=== PATIENT | female | born 1995 | race Caucasian/White ===

== ENCOUNTER 2019-10-14 09:37 | Outpatient (CLI) | payer OTHER ==
[2019-10-14 14:42] LABS: ALBUMIN 4.5 g/dL (3.2-5.5); ALBUMIN/GLOBULIN RATIO 1.4 (1.0-2.2); BILIRUBIN,TOTAL 0.7 mg/dL (0.2-1.0); CALCIUM 9.1 mg/dL (8.5-10.3); CREATININE 0.7 mg/dL (0.4-1.0); TOTAL PROTEIN 7.8 g/dL (6.7-8.2)
[2019-10-14 15:05] LABS: BASOPHILS # (AUTO) 0.1 10^3/uL (0.0-0.1); BASOPHILS % (AUTO) 1.5 %; EOSINOPHILS # (AUTO) 0.2 10^3/uL (0.0-0.7); EOSINOPHILS % (AUTO) 3.1 %; HGB - HEMOGLOBIN 13.7 g/dL (12.0-16.0); LYMPHOCYTES # (AUTO) 1.7 10^3/uL (1.5-3.5); LYMPHOCYTES % (AUTO) 29.8 %; MEAN CORPUSCULAR HEMOGLOBIN 30.9 pg (27.0-31.0); MEAN CORPUSCULAR HGB CONC 33.1 g/dL (32.0-36.0); MEAN CORPUSCULAR VOLUME 93.2 fL (81.0-99.0); MEAN PLATELET VOLUME 11.9 fL (7.9-10.8); MONOCYTES # (AUTO) 0.5 10^3/uL (0.0-1.0); MONOCYTES % (AUTO) 8.4 %; NEUTROPHILS # (AUTO) 3.3 10^3/uL (1.5-6.6); NEUTROPHILS % (AUTO) 56.9 %; PLT - PLATELET COUNT 227 10^3/uL (130-450); RED BLOOD COUNT 4.44 10^6/uL (4.20-5.40); RED CELL DISTRIBUTION WIDTH 12.3 % (12.0-15.0); WHITE BLOOD COUNT 5.8 x10^3/uL (4.8-10.8)
== END 2019-10-14 23:59 | disposition home or self-care (01) ==
LOC: LAB.WCP 09:37
PROVIDERS: ATTEND Physician Assistant
DX: Z00.00 Encounter for general adult medical examination without abnormal findings (principal)
CPT/HCPCS: 36415; 80053; 84443; 85025

== ENCOUNTER 2021-04-21 07:32 | Outpatient (CLI) | payer OTHER ==
--- NOTE | 2021-04-21 16:42 | Ultrasound Report ---
PROCEDURE: OB First Trimester INDICATIONS: POSITIVE TEST OUTSIDE/PRIOR DATING DATA: Last menstrual period (LMP): 01/29/2021. LMP-based estimated date of delivery (KIMBERLY): 11/05/2021. First dating scan (date and location): This study. Estimated date of delivery (KIMBERLY) from first dating scan: 11/05/2021, +/- 5 days. The below data below was generated using the above KIMBERLY of 11/05/2021. TECHNIQUE: Real-time scanning was performed of the fetus and maternal pelvic organs, with image documentation. COMPARISON: None FINDINGS: Single living intrauterine gestation with current heart rate 1 52 bpm and posterior placen ta. Soudan-rump length is measured at 5 cm, which correlates with a gestational age of 11 weeks 5 days , +/- 5 days. Embryo: Normal in appearance, anatomy cannot yet be accurately assessed. Heart rate: 152 bpm. Measurement variability in dating: +/- 4 weeks by LMP, +/- 7 days by mean sac diameter (use before 6 weeks gestation if crown-rump length not able to be measured), +/- 5 days by crown-rump length (6-12 weeks gestation). Maternal organs: Ovaries normal considering gestational status.. IMPRESSION: Single living intrauterine gestation, measuring 11 weeks 5 days of age and with delivery date project ed to be centered on 11/05/2021, +/- 5 days. Reviewed by: Bj Tamayo MD on 04/21/2021 4:40 PM PDT Approved by: Bj Tamayo MD on 04/21/2021 4:40 PM PDT Station ID: [id number]
== END 2021-04-21 07:33 | disposition home or self-care (01) ==
LOC: DI 07:32
PROVIDERS: ATTEND Nurse Practitioner Obstetrics & Gynecology
DX: Z32.01 Encounter for pregnancy test, result positive (principal)

== ENCOUNTER 2021-05-10 08:00 | Outpatient (CLI) | payer OTHER ==
[2021-05-11 13:22] LABS: BILIRUBIN,URINE NEGATIVE (NEGATIVE); GLUCOSE, URINE (UA) NEGATIVE (NEGATIVE); KETONES,URINE (UA) NEGATIVE (NEGATIVE); LEUKOCYTE ESTERASE, URINE NEGATIVE (NEGATIVE); NITRITE,URINE NEGATIVE (NEGATIVE); OCCULT BLOOD,URINE NEGATIVE (NEGATIVE); PROTEIN,URINE NEGATIVE (NEGATIVE); UROBILINOGEN,URINE 0.2 (NORMAL) E.U./dL (NORMAL)
[2021-05-11 13:23] LABS: CLARITY,URINE CLEAR (CLEAR)
[2021-05-11 13:30] LABS: MUDS CUTOFF CONCENTRATIONS CUTOFF CONC BELOW:
[2021-05-11 13:31] LABS: AMPHETAMINE SCREEN,URINE NEGATIVE (NEGATIVE); BACTERIA,URINE Few /HPF (None Seen); BARBITURATE SCREEN,UR NEGATIVE (NEGATIVE); BENZODIAZEPINES SCREEN, URINE NEGATIVE (NEGATIVE); COCAINE SCREEN URINE NEGATIVE (NEGATIVE); METHADONE SCREEN, URINE NEGATIVE (NEGATIVE); METHAMPHETAMINES SCREEN, URINE NEGATIVE (NEGATIVE); OPIATE SCREEN, URINE NEGATIVE (NEGATIVE); OXYCODONE SCREEN, URINE NEGATIVE (NEGATIVE); PROPOXYPHENE SCREEN, URINE NEGATIVE (NEGATIVE); RBC,URINE 0-5 /HPF (0-5); SQUAMOUS EPITHELIAL CELL,UR FEW Squamous (<= Few); THC CANNABINOID SCREEN, URINE NEGATIVE (NEGATIVE); TRICYCLIC ANTIDEPRESSANT,URINE NEGATIVE (NEGATIVE); WBC,URINE 0-3 /HPF (0-5)
[2021-05-11 21:50] LABS: CHLAMYDIA TRACHOMATIS DNA NEGATIVE (NEGATIVE); NEISSERIA GONORRHOEAE DNA NEGATIVE (NEGATIVE); TRICHOMONAS VAGINALIS DNA NEGATIVE (NEGATIVE)
== END 2021-05-10 23:59 | disposition home or self-care (01) ==
LOC: LAB.WC 08:00
PROVIDERS: ATTEND Nurse Practitioner Obstetrics & Gynecology
DX: Z34.90 Encounter for supervision of normal pregnancy, unspecified, unspecified trimester (principal); Z36.89 Encounter for other specified antenatal screening
CPT/HCPCS: 80306; 81001; 87086; 87491; 87591; 87661

== ENCOUNTER 2021-05-10 14:04 | Outpatient (CLI) | payer OTHER ==
[2021-05-10 14:22] LABS: BASOPHILS # (AUTO) 0.1 10^3/uL (0.0-0.1); BASOPHILS % (AUTO) 0.5 %; EOSINOPHILS # (AUTO) 0.1 10^3/uL (0.0-0.7); EOSINOPHILS % (AUTO) 0.9 %; HCT - HEMATOCRIT 36.4 % (37.0-47.0); HGB - HEMOGLOBIN 12.7 g/dL (12.0-16.0); LYMPHOCYTES # (AUTO) 1.9 10^3/uL (1.5-3.5); LYMPHOCYTES % (AUTO) 14.8 %; MEAN CORPUSCULAR HEMOGLOBIN 31.1 pg (27.0-31.0); MEAN CORPUSCULAR HGB CONC 34.9 g/dL (32.0-36.0); MEAN CORPUSCULAR VOLUME 89.2 fL (81.0-99.0); MEAN PLATELET VOLUME 9.9 fL (7.9-10.8); MONOCYTES # (AUTO) 0.7 10^3/uL (0.0-1.0); MONOCYTES % (AUTO) 5.6 %; NEUTROPHILS % (AUTO) 77.8 %; PLT - PLATELET COUNT 249 10^3/uL (130-450); RED BLOOD COUNT 4.08 10^6/uL (4.20-5.40); RED CELL DISTRIBUTION WIDTH 12.5 % (12.0-15.0); WHITE BLOOD COUNT 12.8 x10^3/uL (4.8-10.8)
[2021-05-12 13:12] LABS: HIV AG/AB 4TH GEN NON-REACTIVE (NON-REACTIVE)
[2021-05-12 13:26] LABS: HEPATITIS B SURFACE ANTIGEN NON-REACTIVE (NON-REACTIVE)
[2021-05-12 13:27] LABS: HEPATITIS C ANTIBODY NON-REACTIVE (NON-REACTIVE)
== END 2021-05-10 14:05 | disposition home or self-care (01) ==
LOC: LAB 14:04
PROVIDERS: ATTEND Nurse Practitioner Obstetrics & Gynecology
DX: Z36.89 Encounter for other specified antenatal screening (principal); Z32.01 Encounter for pregnancy test, result positive
CPT/HCPCS: 36415; 85025; 86592; 86762; 86787; 86803; 86850; 86900; 86901; 87340; 87389

== ENCOUNTER 2021-06-06 06:58 | Outpatient (CLI) | payer OTHER ==
--- NOTE | 2021-06-06 17:07 | Ultrasound Report ---
PROCEDURE: OB Detailed Eval INDICATIONS: SUPERVISION OF NORMAL OUTSIDE/PRIOR DATING DATA: Last menstrual period (LMP): 01/29/2021. LMP-based estimated date of delivery (KIMBERLY): 11/05/2021. First dating scan (date and location): 04/21/2021. Estimated date of delivery (KIMBERLY) from first dating scan: 11/05/2021. The below data below was generated using the KIMBERLY of 11/05/2021 TECHNIQUE: Real-time scanning was performed of the fetus, with image documentation and biometric measurements. COMPARISON: OB ultrasound 04/21/2021 FINDINGS: General: A single living intrauterine gestation is present. Presentation: Vertex Placenta: Placental position is posterior, without previa. Amniotic fluid index: 12.3 cm. Largest pocket 3.9 cm heart rate: 137 beats per minute. Maternal cervical canal: 3.4 cm long; normal length is 2.5 cm or more. biometrics: Biparietal diameter: 4.3 cm 18 weeks 6 days Head circumference: 15.7 cm 18 weeks 4 days Abdominal circumference: 13.1 cm 18 weeks 4 days Femur length: 2.7 cm 18 weeks 2 days Estimated gestational age from initial scan: 18 weeks 2 days Composite gestational age from present scan: 18 weeks 4 days Estimated weight and percentile: 242 g 58th percentile Measurement variability in biometric dating: +/- 10 days from 12-20 weeks gestation, +/- 2 weeks from 20-30 weeks gestation, +/- 3 weeks at 30 weeks gestation or later. Anatomic survey: Neuro: Ventricles are normal at less than 10 mm. Cisterna magna is normal at 3-11 mm. Cerebellum i s normal in size and morphology. Nuchal skin fold: Normal at less than 6 mm between 14 and 20 weeks gestational age. Face: Nose and lips, facial profile are normal. Spine: No evidence for spina bifida. Heart: 4-chambered heart is present, with normal ventricular outflow tracts. Diaphragm: Diaphragm is intact. Stomach: Left-sided stomach is present. Kidneys: No hydronephrosis. Normal is less than 5 mm in 2nd trimester, less than 7 mm in 3rd trimester. Cord: 3 vessel cord has orthotopic insertion. Bladder: Normal in size. Extremities: All 4 extremities are visualized. IMPRESSION: 1. Single live intrauterine . 2. JANIE 12.3 cm, largest pocket 3.9 cm Reviewed by: Radha Centeno MD on 06/06/2021 5:06 PM PDT Approved by: Radha Centeno MD on 06/06/2021 5:06 PM PDT Station ID: [id number]
== END 2021-06-06 06:59 | disposition home or self-care (01) ==
LOC: DI 06:58
PROVIDERS: ATTEND Nurse Practitioner Obstetrics & Gynecology
DX: Z34.02 Encounter for supervision of normal first pregnancy, second trimester (principal); Z36.89 Encounter for other specified antenatal screening

== ENCOUNTER 2021-08-19 09:47 | Outpatient (CLI) | payer OTHER | END 2021-08-19 09:48 | disposition home or self-care (01) | LOC: LAB 09:47 | PROVIDERS: ATTEND Nurse Practitioner Obstetrics & Gynecology | DX: Z36.89 Encounter for other specified antenatal screening (principal) | CPT/HCPCS: 82950; 85027 ==

== ENCOUNTER 2021-10-11 11:40 | Outpatient (CLI) | payer OTHER | END 2021-10-11 23:59 | disposition home or self-care (01) | LOC: LAB.WC 11:40 | PROVIDERS: ATTEND Nurse Practitioner Obstetrics & Gynecology | DX: Z36.85 Encounter for antenatal screening for Streptococcus B (principal) | CPT/HCPCS: 87797 ==

== ENCOUNTER 2021-11-04 22:38 | Outpatient (CLI) | payer OTHER ==
[2021-11-04 23:03] VITALS: BP 129/77
--- NOTE | 2021-11-04 23:36 | PROVIDER PROGRESS NOTE ---
- HPI Chief Complaint: Leakage of vaginal fluid Current : Vital Signs Temperature 99.0 F 11/04/21 22:40 Temperature 99.0 F 11/04/21 22:48 Heart Rate 74 11/04/21 22:48 Respiratory Rate 17 11/04/21 22:48 Blood Pressure 129/77 11/04/21 22:48 O2 Saturation 100 11/04/21 22:48 - Procedures OB Procedure Performed: NST Diagnosis/Indication for NST: Other (ROM) NST Procedure: EFM 125 mod jenna 15x15 accels no decels TOCO: intermittent/mild start time: 22;47 Stop time: 23:08 Cat I tracing Service Date of procedure: 11/04/21 - Plan Plan: ID: Patient is a 26 yo at 39+6 wga who presented for assessment of ruptured membranes. HPI: Patient called the answering service at 20:37 indicated that she had passed a large gush of fluid and had ongoing fluid loss. It was recommended that she present to Labor and Dleivery for admission. She reported that she wanted to labor at home as much as possible and did not want to present to the hospital. Risks of prolapse cord, etc were reviewed and patient agreed to come in for assessment. Upon presentation, she was noted to have gross loss of fluid, with pads and undergarments fully saturated. Fluid and fluid from undergarments were strongly nitrazine positive. Patient reports passing only a spot of blood. Intermittent contractions. Endorses FM. Patient has received her care through the midwifery service at [facility]. PNC: LMP: 01/29/2021 KIMBERLY by LMP: 11/05/2021 Initial U/S: @ 11.5wks c/w LMP for KIMBERLY 11/05/2021 FINAL KIMBERLY: 11/05/2021 A pos/Rubella immune VZV:immune Genetic testing: declined FAS: wnl. Placenta posterior. JANIE 12.3, SDP 3.9. EFW 58%. 3VC Glucola: declined. Will track BS 4x/day for 4 weeks beginiing 08/23/21 Influenza:decline TDAP decline COVID-19 vaccine - declines GBS @36.3 Negative HSV: negative Breast pump Rx-08/09 MOD: Anticipate ; Partner Mirsha (male); epidural; breast; It's a baby GIRL!!!- Shereen pp contraception: pap: 10/14/2019 wnl PMH: none PSH: none SOC HX: Lives in [place]. No DANIEL FH: Denies any significant family hx. ROS: As per HPI, otherwise remaining systems are negative. 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 It was strongly recommended that patient be admitted for management of SROM/labor and continued surveillance of FWB Patient declined and states she wants to labor at home and come in when she can no longer tolerate the discomfort. We had an extensive discussion regarding maternal and risks s/p rupture of membranes, including but not limited to chorioamnionitis, sepsis, undetected cord prolapse, etc. Briefly reviewed termPROM trial findings and implications. Showed patient and family labor room. Despite extensive discussion, patient refused admission. Signed AMA papers. Reports she will return when labor is active. Cat I tracing.
== END 2021-11-04 23:23 | disposition left against medical advice (07) ==
LOC: WFO 22:38 → FBP 22:40 → WFO 23:23
PROVIDERS: ATTEND Obstetrics & Gynecology
DX: O42.92 Full-term premature rupture of membranes, unspecified as to length of time between rupture and onset of labor (principal); Z3A.39 39 weeks gestation of pregnancy; Z53.29 Procedure and treatment not carried out because of patient's decision for other reasons
CPT/HCPCS: 59025; 99214

== ENCOUNTER 2021-11-05 02:04 | Inpatient (IN) | payer OTHER ==
[2021-11-05] MEDS ORDERED: OXYTOCIN 10 UNIT/ML VIAL IM PRN (02:51)
[2021-11-05] MEDS ORDERED: SODIUM CHLORIDE FLUSH 0.9% 10 ML SYRINGE IVP PRN (02:51)
[2021-11-05] MEDS ORDERED: OXYTOCIN/SODIUM CHLORIDE 500 ML IV PRN (02:51)
[2021-11-05] MEDS ORDERED: LABETALOL 20 MG/4 ML SYRINGE IVP PRN ×2 (02:51)
[2021-11-05] MEDS ORDERED: fentaNYL 100 MCG/2 ML VIAL IVP PRN (02:51)
[2021-11-05] MEDS ORDERED: miSOPROStoL 200 MCG TABLET BC PRN (02:51)
[2021-11-05] MEDS ORDERED: CARBOPROST TROMETHAMINE 250 MCG/ML AMP IM PRN (02:51)
[2021-11-05] MEDS ORDERED: miSOPROStoL 200 MCG TABLET PR PRN (02:51)
[2021-11-05] MEDS ORDERED: METHYLERGONOVINE 0.2 MG/ML VIAL IM PRN (02:51)
[2021-11-05] MEDS ORDERED: TERBUTALINE 1 MG/ML VIAL SUBQ PRN (02:51)
[2021-11-05] MEDS ORDERED: hydrALAZINE INJ 20 MG/ML VIAL IVP PRN (02:51)
[2021-11-05] MEDS ORDERED: LIDOCAINE-MPF 1% 30 ML VIAL ID PRN (02:51)
[2021-11-05] MEDS ORDERED: TRANEXAMIC ACID IN NACL 1,000 MG/100 ML BAG IV PRN (02:51)
[2021-11-05] MEDS ORDERED: LACTATED RINGERS 1,000 ML ONE ×2 (05:23→11:07)
[2021-11-05 06:09] LABS: BASOPHILS # (AUTO) 0.1 10^3/uL (0.0-0.1); BASOPHILS % (AUTO) 0.4 %; EOSINOPHILS % (AUTO) 0.1 %; HCT - HEMATOCRIT 34.4 % (37.0-47.0); HGB - HEMOGLOBIN 11.4 g/dL (12.0-16.0); LYMPHOCYTES # (AUTO) 1.6 10^3/uL (1.5-3.5); LYMPHOCYTES % (AUTO) 8.7 %; MEAN CORPUSCULAR HEMOGLOBIN 27.7 pg (27.0-31.0); MEAN CORPUSCULAR HGB CONC 33.1 g/dL (32.0-36.0); MEAN CORPUSCULAR VOLUME 83.5 fL (81.0-99.0); MEAN PLATELET VOLUME 10.4 fL (7.9-10.8); MONOCYTES % (AUTO) 5.4 %; NEUTROPHILS # (AUTO) 15.1 10^3/uL (1.5-6.6); NEUTROPHILS % (AUTO) 84.7 %; PLT - PLATELET COUNT 183 10^3/uL (130-450); RED BLOOD COUNT 4.12 10^6/uL (4.20-5.40); RED CELL DISTRIBUTION WIDTH 13.6 % (12.0-15.0); WHITE BLOOD COUNT 17.8 x10^3/uL (4.8-10.8)
[2021-11-05 06:19] LABS: ALBUMIN 3.1 g/dL (3.2-5.5); ALBUMIN/GLOBULIN RATIO 0.9 (1.0-2.2); BILIRUBIN,TOTAL 0.4 mg/dL (0.2-1.0); CALCIUM 8.6 mg/dL (8.5-10.3); CREATININE 0.5 mg/dL (0.4-1.0); POTASSIUM 3.5 mmol/L (3.5-5.0); TOTAL PROTEIN 6.5 g/dL (6.7-8.2)
[2021-11-05] MEDS ORDERED: LACTATED RINGERS 500 ML IV ONE ×2 (07:52→10:45)
[2021-11-05] MEDS ORDERED: ROPIVACAINE 0.2% 200 MG/100 ML BAG EP ONE (08:42)
[2021-11-05] MEDS ORDERED: ONDANSETRON 4 MG/2 ML VIAL IVP PRN (09:09)
[2021-11-05] MEDS ORDERED: NALBUPHINE 10 MG/ML AMP IVP PRN (09:09)
[2021-11-05] MEDS ORDERED: diphenhydrAMINE INJ 50 MG/ML VIAL IVP PRN (09:09)
[2021-11-05] MEDS ORDERED: ROPIVACAINE 0.2% 200 MG/100 ML BAG EP PRN (09:09)
--- NOTE | 2021-11-05 09:09 | ANESTHESIA ---
Pre-Anesthesia VS, & Labs - Diagnosis labor epidural - Procedure epidural Vital Signs: Temp Pulse Resp BP Pulse Ox 36.8 C 74 17 112/57 L 11/05/21 02:51 11/05/21 02:51 11/05/21 02:51 11/05/21 02:51 Height: 5 ft Weight (kg): 68.039 kg Body Mass Index: 29.2 BMI Classification: Overweight - NPO >8 hours - Is Patient ?: Yes - Lab Results Current Lab Results: Laboratory Tests 11/05/21 05:45: Sodium 134 L, Potassium 3.5, Chloride 101, Carbon Dioxide 21, Anion Gap 12.0, BUN 6, Creatinine 0.5, Estimated GFR (MDRD) 148, Glucose 90, Calcium 8.6, Total Bilirubin 0.4, AST 19, ALT 13, Alkaline Phosphatase 107, Total Protein 6.5 L, Albumin 3.1 L, Globulin 3.4, Albumin/Globulin Ratio 0.9 L 11/05/21 05:45: WBC 17.8 H, RBC 4.12 L, Hgb 11.4 L, Hct 34.4 L, MCV 83.5, MCH 27.7, MCHC 33.1, RDW 13.6, Plt Count 183, MPV 10.4, Neut # (Auto) 15.1 H, Lymph # (Auto) 1.6, [place] # (Auto) 1.0, Eos # (Auto) 0.0, Baso # (Auto) 0.1, Absolute Nucleated RBC 0.00, Nucleated RBC % 0.0 11/05/21 05:45: Blood Type A POSITIVE, Antibody Screen NEGATIVE Fish Bones: 11/05/21 05:45 11/05/21 05:45 Home Medications and Allergies Active Medications Carboprost Tromethamine (Carboprost Tromethamine 250 Mcg/Ml Amp) 250 mcg IM .ONCE PRN PRN Reason: Hemorrhage Fentanyl (Fentanyl 100 Mcg/2 Ml Vial) 50 mcg IVP Q1H PRN PRN Reason: Severe Pain (score 7-10) Hydralazine HCl (Hydralazine Inj 20 Mg/Ml Vial) 10 mg IVP .ONCE PRN; Protocol PRN Reason: Step 9 of Labetalol protocol Stop: 11/10/21 02:51 Oxytocin/Sodium Chloride (Pitocin/Sodium Chloride) 500 mls @ 999 mls/hr IV PRN PRN; Protocol PRN Reason: POST- HEMORR PREVENTION Tranexamic Acid (Tranexamic 1,000 Mg/100ml-Nacl) 1,000 mg in 100 mls @ 600 mls/hr IV Q30M PRN PRN Reason: EBL >1200mL and within 3hr Labetalol HCl (Labetalol 20 Mg/4 Ml Syringe) 20 - 80 mg IVP Q10M PRN; Protocol PRN Reason: SBP> or= 160 OR DBP> or= 110 Labetalol HCl (Labetalol 20 Mg/4 Ml Syringe) 20 mg IVP .ONCE PRN; Protocol PRN Reason: SBP> or= 160 OR DBP> or= 110 Lidocaine HCl (Lidocaine-Mpf 1% 30 Ml Vial) 30 ml ID ONCE PRN PRN Reason: PERINEAL REPAIR Stop: 11/06/21 02:51 Methylergonovine Maleate (Methylergonovine 0.2 Mg/Ml Vial) 0.2 mg IM .ONCE PRN PRN Reason: Hemorrhage Misoprostol (Misoprostol 200 Mcg Tablet) 600 mcg BC .ONCE PRN PRN Reason: Hemorrhage Misoprostol (Misoprostol 200 Mcg Tablet) 800 mcg [place] .ONCE PRN PRN Reason: Hemorrhage Oxytocin (Oxytocin 10 Unit/Ml Vial) 10 unit IM .ONCE PRN PRN Reason: Step One if no IV access. Sodium Chloride (Sodium Chloride Flush 0.9% 10 Ml Syringe) 10 ml IVP PRN PRN PRN Reason: NEEDED PER PROVIDER ORDERS Sodium Chloride (Sodium Chloride Flush 0.9% 10 Ml Syringe) 10 ml IVP Q8H YESICA Terbutaline Sulfate (Terbutaline 1 Mg/Ml Vial) 0.25 mg SUBQ ONCE PRN PRN Reason: Tachystole Stop: 11/05/21 23:59 Allergies/Adverse Reactions: Allergies Allergy/AdvReac Type Severity Reaction Status Date / Time No Known Drug Allergies Allergy Verified 11/05/21 03:28 Anes History & Medical History - Anesthetic History Anesthesia Complications: reports: No previous complications - Medical History Smoking Status: Never smoker History of Cancer?: No Exam General: Alert, Oriented x3 Dental: WNL Mallampati classification: II Thyromental Distance: greater than 6 cm Respiratory: Lungs clear Plan Anesthesia Type: Epidural Consent for Procedure(s) Verified and Reviewed: Yes Code Status: Attempt Resuscitation ASA classification: 2-Mild systemic disease Is this case an emergency?: No
[2021-11-05] MEDS: miSOPROStoL 100 MCG TABLET BC SCH (11:45)
--- NOTE | 2021-11-05 11:51 | CONSULTATION NOTE ---
Consultation Report: Called for decrease in BP after epidural bolus that resulted in new anxiety for patient. Pt able to move both legs but sensation decreased t/o. Pt has not used PCEA. Pump rate decreased to 8cc q50 mins and next bolus moved out 20 mins from original time to bolus. Pt states she is comfortable t/o contractions. VSS upon arrival.
--- NOTE | 2021-11-05 12:30 | HISTORY & PHYSICAL EXAMINATION ---
Admit History - Visit Reason Visit Reason: Membranes rupture - Smoking Status: Never smoker - Other Maternal History Other Maternal History: ID: Patient is a 26 yo at 40+0 wga who presented for admission for ruptured membranes. HPI: Patient presented on the evening of 11/04/20 after reporting that she had passed a large gush of fluid and had ongoing fluid loss at 20:37. She presented about 2 hours later for evaluation. Upon presentation, she was noted to have gross loss of fluid, with pads and undergarments fully saturated. Fluid and fluid from undergarments were strongly nitrazine positive. Patient reports passing only a spot of blood. Intermittent contractions. Endorsed FM. It was strongly recommended that she remain in house for admission and risks were reviewed. She declined admission and signed out AMA. She presented this am at about 2:51, reporting contractions were more intense. No VB. Endorses FM. Initial SVE was performed by RN and cervix was too high and posterior for evaluation. Patient has received her care through the midwifery service at [facility]. Desires low intervention. Epidural requested and placed this am PNC: LMP: 01/29/2021 KIMBERLY by LMP: 11/05/2021 Initial U/S: @ 11.5wks c/w LMP for KIMBERLY 11/05/2021 FINAL KIMBERLY: 11/05/2021 A pos/Rubella immune VZV:immune Genetic testing: declined FAS: wnl. Placenta posterior. JANIE 12.3, SDP 3.9. EFW 58%. 3VC Glucola: declined. Will track BS 4x/day for 4 weeks beginiing 08/23/21 Influenza:decline TDAP decline COVID-19 vaccine - declines GBS @36.3 Negative HSV: negative Breast pump Rx-08/09 MOD: Anticipate ; Partner Mirsha (male); epidural; breast; It's a baby GIRL!!!- Shereen pp contraception: pap: 10/14/2019 wnl PMH: none PSH: none SOC HX: Lives in [place]. No DANIEL FH: Denies any significant family hx. ROS: As per HPI, otherwise remaining systems are negative. 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 SROM: -Had been mitzy but has since diminished -Desires low intervention. Will administer misoprostol 25 mcg -Potential pitocin augmentation -WIll likely meet criteria for prolonged rupture of membranes; minimize SVE as much as possible FWB: Cat I tracing. PAIN: Has received epidural Anticipate Meds/Allgy - Allergies Allergies/Adverse Reactions: Allergies Allergy/AdvReac Type Severity Reaction Status Date / Time No Known Drug Allergies Allergy Verified 11/05/21 03:28 Physical - Abdominal Exam Vital Signs: Temp Pulse Resp BP Pulse Ox 98.2 F 74 17 112/57 L 11/05/21 02:51 11/05/21 02:51 11/05/21 02:51 11/05/21 02:51
[2021-11-05] MEDS: OXYTOCIN/SODIUM CHLORIDE 500 ML IV SCH (16:49)
--- NOTE | 2021-11-05 21:19 | PROVIDER PROGRESS NOTE ---
Subjective - Prog Note Date Prog Note Date: 11/05/21 Prog Note Time: 21:16 - Subjective Subjective: Patient is comfortable with epidural in place. Fluid remains clear. Afebrile. Resting in bed. Pitocin at 6 mU/min Objective - Vital Signs/Intake & Output Reviewed Vital Signs: Yes Vital Signs: 135/74 95 98% Intake & Output: Intake & Output 11/02/21 11/03/21 11/04/21 11/05/21 23:59 23:59 23:59 23:59 Intake Total 1199.5 Output Total 1050 Balance 149.5 - Objective General Appearance: positive: No acute distress Respiratory: positive: No respiratory distress Cardiovascular: positive: Other (RR) Comments/Other: SVE: retractable anterior lip/C/+2 EFM 135 mod jenna 15x15 accels no decels TOCO: Q3 min - Lab Results Fish Bones: 11/05/21 05:45 11/05/21 05:45 Other Labs: Lab Results x24hrs 11/05/21 11/05/21 11/05/21 Range/Units 05:45 05:45 05:45 WBC 17.8 H (4.8-10.8) x10^3/uL RBC 4.12 L (4.20-5.40) 10^6/uL Hgb 11.4 L (12.0-16.0) g/dL Hct 34.4 L (37.0-47.0) % MCV 83.5 (81.0-99.0) fL MCH 27.7 (27.0-31.0) pg MCHC 33.1 (32.0-36.0) g/dL RDW 13.6 (12.0-15.0) % Plt Count 183 (130-450) 10^3/uL MPV 10.4 (7.9-10.8) fL Neut # (Auto) 15.1 H (1.5-6.6) 10^3/uL Lymph # (Auto) 1.6 (1.5-3.5) 10^3/uL [place] # (Auto) 1.0 (0.0-1.0) 10^3/uL Eos # (Auto) 0.0 (0.0-0.7) 10^3/uL Baso # (Auto) 0.1 (0.0-0.1) 10^3/uL Absolute Nucleated RBC 0.00 x10^3/uL Nucleated RBC % 0.0 /100WBC Sodium 134 L (135-145) mmol/L Potassium 3.5 (3.5-5.0) mmol/L Chloride 101 (101-111) mmol/L Carbon Dioxide 21 (21-32) mmol/L Anion Gap 12.0 (6-13) BUN 6 (6-20) mg/dL Creatinine 0.5 (0.4-1.0) mg/dL Estimated GFR (MDRD) 148 (>89) Glucose 90 (70-100) mg/dL Calcium 8.6 (8.5-10.3) mg/dL Total Bilirubin 0.4 (0.2-1.0) mg/dL AST 19 (10-42) IU/L ALT 13 (10-60) IU/L Alkaline Phosphatase 107 (42-121) IU/L Total Protein 6.5 L (6.7-8.2) g/dL Albumin 3.1 L (3.2-5.5) g/dL Globulin 3.4 (2.1-4.2) g/dL Albumin/Globulin Ratio 0.9 L (1.0-2.2) Blood Type A POSITIVE Antibody Screen NEGATIVE Assessment/Plan - Problem List (1) Spontaneous rupture of amniotic membranes Impression: Anterior lip was retracted as patient pushed. Fully retracted to complete cervical dilation Cat I tracing Will start pushing once FOB returns to bedside
[2021-11-05] MEDS ORDERED: ONDANSETRON ODT 4 MG TABLET TL PRN (22:35)
[2021-11-05] MEDS ORDERED: IBUPROFEN 600 MG TABLET PO PRN (22:35)
[2021-11-05] MEDS ORDERED: SIMETHICONE CHEW 80 MG TABLET PO PRN (22:35)
[2021-11-05] MEDS ORDERED: DOCUSATE SODIUM 100 MG CAPSULE PO PRN (22:35)
[2021-11-05] MEDS ORDERED: HYDROCORTISONE 1% CREAM 28 GM TUBE PR PRN (22:35)
[2021-11-05] MEDS ORDERED: ACETAMINOPHEN 500 MG TABLET PO PRN (22:35)
--- NOTE | 2021-11-05 22:38 | DELIVERY NOTE ---
Delivery Note - Labor Labor: positive: Augmented by oxytocin - Delivery Method Delivery Method: positive: Spontaneous vaginal delivery - Presentation Presentation: positive: Vertex, HARMEET - right occiput anterior - Nuchal Cord Nuchal Cord: positive: None - Anesthetic Anesthetic Type: - Amniotic Fluid Description Amniotic Fluid Description: positive: Clear - Episiotomy Type Episiotomy Type: positive: None - Laceration Laceration: positive: 2nd degree - Suture Suture Type: positive: Vicryl Suture Size: positive: 2-0, 3-0 - Delivery Outcome Delivery Outcome: positive: Livebirth - Jackson Jackson: positive: Placed in direct skin contact with mother, Stimulated, Warmed, [place] used sex: positive: Female : Apgars 8/9 - Cord Cord: positive: 3 vessels - Placenta Placenta: positive: Intact, Expressed - Estimated Blood Loss Estimated Blood Loss (in cc): 372 (QBL) - Post Delivery Events Post Delivery Events: positive: No post delivery events - Delivery Comments (Free Text/Narrative) Delivery Comments (Free Text/Narrative): STAGE I: Patient presented on the evening of 11/04/21 after reporting that she had passed a large gush of fluid and had ongoing fluid loss at 20:37. She presented about 2 hours later for evaluation. Upon presentation, she was noted to have gross loss of fluid, with pads and undergarments fully saturated. Fluid and fluid from undergarments were strongly nitrazine positive. Patient reports passing only a spot of blood. Intermittent contractions. Endorsed FM. It was strongly recommended that she remain in house for admission and risks were reviewed. She declined admission and signed out AMA. She presented 11/05/21 am at about 2:51, reporting contractions were more intense. Initial SVE was performed by RN and cervix was too high and posterior for evaluation. She was given misoprostol 25 mcg x2 and then was started on pitocin for augmentation, reaching a max dose of 6 mU/min. Epidural for pain management. GBS negative. Cat I tracing throughout Stage I labor. Complete at 21:00. STAGE II: Patient started pushing at 21:10. She pushed well for 51 minutes to deliver a viable female from HARMEET presentation. Left shoulder was anterior and delivered without difficulty. No nuchal cord. was delivered to maternal chest. Cord was clamped x2 and cut after pulsations had ceased. Apgars were 8/9, weight pending. STAGE III: Placenta delivered at 22:07 with manual expression. It was examined and found to be intact. Perineum was examined and a 2nd degree midline laceration was noted. It was repaired in the usual sterile fashion in layers using 2-0 and 3-0 Vicryl. Good hemostasis was noted. QBL 372 mL
--- NOTE | 2021-11-06 10:40 | PROVIDER PROGRESS NOTE ---
Subjective - Prog Note Date Prog Note Date: 11/06/21 Prog Note Time: 10:38 - Subjective Subjective: Patient is resting in bed. Feels pain is well managed. BF going well but having nipple soreness. Minimal lochia. Voiding. Tolerating po. Would like to DC t onight but had prolonged ROM with delivery after 10 pm. Objective - Vital Signs/Intake & Output Reviewed Vital Signs: Yes Vital Signs: Vital Signs x48h Temp Pulse Resp BP 11/06/21 07:58 97.5 F L 76 18 111/61 Intake & Output: Intake & Output 11/03/21 11/04/21 11/05/21 11/06/21 23:59 23:59 23:59 23:59 Intake Total 2199.5 Output Total 1350 Balance 849.5 - Objective General Appearance: positive: No acute distress Respiratory: positive: No respiratory distress, Breath sounds nml Cardiovascular: positive: Regular rate & rhythm Abdomen: positive: Non-tender, Other (soft, FF below umbi) Extremities: positive: Non-tender Neurologic/Psychiatric: positive: Oriented x3 - Lab Results Fish Bones: 11/05/21 05:45 11/05/21 05:45 Assessment/Plan - Problem List (1) Spontaneous rupture of amniotic membranes Impression: PPD#1 s/p with prolonged ROM -Mother is doing wel. Progressing towards goals for discharge -Reviewed that with late night delivery, first time parenting, and prolonged ROMm would be best to discharge tomorrow Will defer to Pediatrics. -Reviewed discharge instructions -Will anticipate DC tomorrow Rh positive/Rubella imm
--- NOTE | 2021-11-06 10:43 | Discharge Plan ---
Discharge Plan Problem Reviewed?: Yes Disposition: Home, Self Care Condition: Good Diet: Regular Activity Restrictions: Additional Comments (see below) Shower Restrictions: Yes (ok to shower. No tub baths for 4 weeks) Additional Instructions or Follow Up instructions: Nothing in the vagina for 6 weeks: No intercourse, tampons, douching Call for: -Fever greater than 100.5 -Pain that does not improve with pain medication -Heavy bleeding in which you are soaking a pad an hour for 2 hours in a row -Pain in the legs (especially one sided), swelling in one leg and not the other, or difficulty/pain with breathing. No tub baths or hot tubs for 4 weeks DISCHARGE MEDICATIONS: Ibuprofen 600 mg by mouth every 6 hours as needed for pain Acetaminophen 500-1000 mg by mouth every 8 hours as needed for pain Docusate 100-200 mg by mouth twice a day as needed for constipation No Smoking: If you smoke, Please STOP! Call for help. Follow-up with: Ludmila Koch CNM, [place] [Provider Admit Priv/Credential] -
[2021-11-06] MEDS: OXYTOCIN/SODIUM CHLORIDE 500 ML IV SCH (14:21)
[2021-11-06] MEDS: LACTATED RINGERS 1,000 ML IV SCH ×2 (14:21→14:22)
[2021-11-06] MEDS: SODIUM CHLORIDE FLUSH 0.9% 10 ML SYRINGE IVP SCH ×3 (14:21→14:23)
[2021-11-06] MEDS: miSOPROStoL 100 MCG TABLET BC SCH ×3 (14:21→14:23)
[2021-11-06 17:43] VITALS: BP 121/77
--- NOTE | 2021-11-06 19:21 | Labor Flowsheet ---
Labor Flowsheet Datetime Report Generated by CPN: 11/06/2021 19:20 Datetime: 11/06/2021 17:39 VITAL SIGNS NBP Sys/Nikki/Mean (mmHg): 121 : 77 : 85 Pulse: 71 SpO2 (%): 100 Datetime: 11/05/2021 22:46 Membranes Ruptured Date/Time: 11/04/2021 20:22 Membranes Rupture Method: Spontaneous Amniotic Fluid Color: Clear Amniotic Fluid Amount: Moderate Amniotic Fluid Odor: None Datetime: 11/05/2021 22:06 Stage of : Recovery Datetime: 11/05/2021 22:01 UTERINE ACTIVITY Monitor Mode: External Frequency (min): 2 Quality: Moderate Pattern: Normal: <= 5 Contractions in 10 Minutes Resting Tone (Palpate): Relaxed Pitocin Checklist: At Least 1 Acceleration of 15 bpm x 15 Seconds in 30 Minutes or Adequate Variabi lity; No More than 1 Late Deceleration Occurred in Past 30 Minutes; No More than 5 Uterine Contractio ns in 10 Minutes for any 20 Minute Interval; Uterus Palpates Soft between Contractions ASSESSMENT A Monitor Mode: Internal Scalp Electrode FHR Baseline Rate : 135 FHR Baseline Changes: No Baseline Change Variability: Moderate 6-25 bpm Accelerations: 15X15 Decelerations: Variable Category: Category II Oxygen Method: Room Air Datetime: 11/05/2021 21:59 LaborFlag: Labor Datetime: 11/05/2021 21:30 MEDICATIONS Pitocin (milliunits): Increased to @ 7 Datetime: 11/05/2021 21:14 Temperature (C): 36.7 Datetime: 11/05/2021 21:01 Duration (sec): 60-110 VAGINAL EXAM Dilatation (cm): 10.0 Effacement (%): 100 Station: 2 Exam by: Dr. Alvarez Datetime: 11/05/2021 19:45 Patient Position/Activity: Left Extreme Patient Care Comments: Peanut ball, side lying release Datetime: 11/05/2021 19:10 COMMUNICATION Communication: Report Given to @ Zelda Dasilva Datetime: 11/05/2021 18:50 Monitor Interventions for UA: [place] Adjusted Hygiene: Evette Care; Underpad Changed Datetime: 11/05/2021 17:45 Temperature Route: Oral Comments: Interrupted tracing due to maternal repositioning Datetime: 11/05/2021 17:44 Monitor Interventions for FHR: Ultrasound Adjusted Datetime: 11/05/2021 17:18 Provider Notified (Name): Dr. Alvarez Communication Comments: Notified of patient decision to initiate pitocin. Initiated a 1mu/hour. P rovider advises titrating in increments of 1 q 30 minutes. She will be in later to perform SVE. Datetime: 11/05/2021 16:28 Anesthesia Level Check: T10- Umbilicus Anesthesia Comments: New Bag Hung Datetime: 11/05/2021 15:30 Actions for Decelerations: Side to Side; Blood Pressure Datetime: 11/05/2021 15:00 Respirations: 16 Contraction Comments: inverted. Uterine irritability Datetime: 11/05/2021 11:54 I/O Interventions: Clear Liquids Given Datetime: 11/05/2021 11:45 Cervical Ripening Agents: Cytotec @ Datetime: 11/05/2021 11:27 Notification Reason: Patient Request Datetime: 11/05/2021 10:45 PAIN Pain Scale: 0 PATIENT CARE IV/Blood Work: IV Bolus Started; IV Bolus Given ml @ 500 Datetime: 11/05/2021 08:44 Epidural Procedure Other: Pump Started Datetime: 11/05/2021 08:42 Epidural Procedure: Loading Dose Datetime: 11/05/2021 08:08 PROCEDURE TIME OUT Procedure Verify: Correct Patient Identity; Accurate Procedure Consent Form; Agreement on Procedure to be Done; Correct Patient Position; Safety Precautions Based on Patient History or Medication Use ANESTHESIA Anesthesia Plans: Epidural Epidural Positioning: Sitting Datetime: 11/05/2021 06:27 Pain Assessment Comments: reports relief with nitrous Teaching Comments: pt observed utilizing nitrous correctly and safely Datetime: 11/05/2021 06:16 TEACHING Instructional Method: Verbal; Patient Instructed; Family/Support Person Instructed; Verbalized Unde rstanding Pain Management: PRN Medications Datetime: 11/05/2021 05:06 Pain Relief Measures: Comfort Measures Comfort Measures: Back Rub Given; Hot/Cold Pack; Family Support Datetime: 11/05/2021 04:39 Pain Coping: Breathing Through Contractions; Declines Medication or Epidural Datetime: 11/05/2021 04:12 Pain Presence: Intermittent Pain Type: Contraction Pain Location: Abdomen; Back
== END 2021-11-06 18:50 | disposition home or self-care (01) | DRG 806 ==
LOC: WFO 02:04 → FBP 02:06 → UNDOFXCLIRRACCOM 02:51 → UNDOFXCLIACCOM 02:51 → FBP 02:51 → WFO 03:41
PROVIDERS: ADMIT Obstetrics & Gynecology; ATTEND Obstetrics & Gynecology
PROC: 0KQM0ZZ Repair Perineum Muscle, Open Approach (ICD-10-PCS; principal; 2021-11-05)
PROC: 10E0XZZ Delivery of Products of Conception, External Approach (ICD-10-PCS; 2021-11-05)
DX: O70.1 Second degree perineal laceration during delivery (principal); O63.9 Long labor, unspecified; Z37.0 Single live birth; O75.89 Other specified complications of labor and delivery; R03.1 Nonspecific low blood-pressure reading; O99.344 Other mental disorders complicating childbirth; F41.9 Anxiety disorder, unspecified; Z3A.40 40 weeks gestation of pregnancy
CPT/HCPCS: 80053; 85025; 86850; 86900; 86901; A9270; J2210; J7120

== ENCOUNTER 2022-08-06 12:56 | Outpatient (CLI) | payer OTHER ==
[2022-08-06 13:59] LABS: T4 (THYROXINE) 7.7 ug/dL (6.09-12.23)
[2022-08-06 14:02] LABS: THYROID STIMULATING HORMONE 1.28 uIU/mL (0.34-5.60)
== END 2022-08-06 12:57 | disposition home or self-care (01) ==
LOC: LAB 12:56
PROVIDERS: ATTEND Nurse Practitioner
DX: N92.6 Irregular menstruation, unspecified (principal); R19.7 Diarrhea, unspecified; F41.9 Anxiety disorder, unspecified
CPT/HCPCS: 36415; 84436; 84443; 84480

== ENCOUNTER 2022-12-09 12:19 | Outpatient (CLI) | payer OTHER ==
[2022-12-09 18:42] LABS: BASOPHILS # (AUTO) 0.1 10^3/uL (0.0-0.1); BASOPHILS % (AUTO) 0.8 %; EOSINOPHILS # (AUTO) 0.1 10^3/uL (0.0-0.7); EOSINOPHILS % (AUTO) 0.9 %; HCT - HEMATOCRIT 39.1 % (37.0-47.0); HGB - HEMOGLOBIN 12.8 g/dL (12.0-16.0); LYMPHOCYTES % (AUTO) 18.9 %; MEAN CORPUSCULAR HEMOGLOBIN 29.8 pg (27.0-31.0); MEAN CORPUSCULAR HGB CONC 32.7 g/dL (32.0-36.0); MEAN CORPUSCULAR VOLUME 90.9 fL (81.0-99.0); MEAN PLATELET VOLUME 11.5 fL (7.9-10.8); MONOCYTES # (AUTO) 0.6 10^3/uL (0.0-1.0); MONOCYTES % (AUTO) 5.2 %; NEUTROPHILS # (AUTO) 7.8 10^3/uL (1.5-6.6); NEUTROPHILS % (AUTO) 73.9 %; PLT - PLATELET COUNT 279 10^3/uL (130-450); RED CELL DISTRIBUTION WIDTH 12.5 % (12.0-15.0); WHITE BLOOD COUNT 10.6 x10^3/uL (4.8-10.8)
[2022-12-11 09:08] LABS: HBsAG SCREEN Negative (Negative); HIV SCREEN 4TH GENERATION Non Reactive (Non Reactive)
[2022-12-11 12:08] LABS: VARICELLA-ZOSTER AB IGG 1512 index (Immune >165)
[2022-12-12 04:08] LABS: RPR Non Reactive (Non Reactive)
== END 2022-12-09 12:20 | disposition home or self-care (01) ==
LOC: LAB.N 12:19
PROVIDERS: ATTEND Nurse Practitioner Obstetrics & Gynecology
DX: Z36.89 Encounter for other specified antenatal screening (principal)
CPT/HCPCS: 36415; 85025; 86592; 86762; 86787; 86803; 86850; 86900; 86901; 87340; 87389

== ENCOUNTER 2023-07-01 22:23 | Inpatient (IN) | payer OTHER ==
[2023-07-01] MEDS ORDERED: LACTATED RINGERS 1,000 ML IV PRN (22:56)
[2023-07-01] MEDS ORDERED: METHYLERGONOVINE 0.2 MG/ML VIAL IM PRN (22:56)
[2023-07-01] MEDS ORDERED: OXYTOCIN 10 UNIT/ML VIAL IM PRN (22:56)
[2023-07-01] MEDS ORDERED: TRANEXAMIC ACID IN NACL 1,000 MG/100 ML BAG IV PRN (22:56)
[2023-07-01] MEDS ORDERED: OXYTOCIN/SODIUM CHLORIDE 500 ML IV PRN (22:56)
[2023-07-01] MEDS ORDERED: SODIUM CHLORIDE FLUSH 0.9% 10 ML SYRINGE IVP PRN (22:56)
[2023-07-01] MEDS ORDERED: LABETALOL 20 MG/4 ML SYRINGE IVP PRN ×3 (22:56)
[2023-07-01] MEDS ORDERED: CARBOPROST TROMETHAMINE 250 MCG/ML AMP IM PRN (22:56)
[2023-07-01] MEDS ORDERED: fentaNYL 100 MCG/2 ML VIAL IVP PRN (22:56)
[2023-07-01] MEDS ORDERED: miSOPROStoL 200 MCG TABLET BC PRN (22:56)
[2023-07-01] MEDS ORDERED: TERBUTALINE 1 MG/ML VIAL SUBQ PRN (22:56)
[2023-07-01] MEDS ORDERED: lidocaine 1% 20 ML MDV ID PRN (22:56)
[2023-07-01] MEDS ORDERED: NIFEdipine 10 MG CAPSULE PO PRN (22:56)
[2023-07-01] MEDS ORDERED: miSOPROStoL 200 MCG TABLET PR PRN (22:56)
[2023-07-01] MEDS ORDERED: hydrALAZINE INJ 20 MG/ML VIAL IVP PRN ×2 (22:56)
[2023-07-01] MEDS ORDERED: LACTATED RINGERS 1,000 ML IV SCH (23:00)
[2023-07-01 23:17] LABS: BASOPHILS # (AUTO) 0.1 10^3/uL (0.0-0.1); BASOPHILS % (AUTO) 0.3 %; EOSINOPHILS % (AUTO) 0.1 %; HGB - HEMOGLOBIN 11.5 g/dL (12.0-16.0); LYMPHOCYTES # (AUTO) 1.8 10^3/uL (1.5-3.5); LYMPHOCYTES % (AUTO) 9.8 %; MEAN CORPUSCULAR HEMOGLOBIN 28.3 pg (27.0-31.0); MEAN CORPUSCULAR HGB CONC 32.9 g/dL (32.0-36.0); MEAN CORPUSCULAR VOLUME 86.2 fL (81.0-99.0); MEAN PLATELET VOLUME 9.9 fL (7.9-10.8); MONOCYTES # (AUTO) 0.9 10^3/uL (0.0-1.0); MONOCYTES % (AUTO) 4.8 %; NEUTROPHILS % (AUTO) 84.2 %; PLT - PLATELET COUNT 268 10^3/uL (130-450); RED BLOOD COUNT 4.06 10^6/uL (4.20-5.40); RED CELL DISTRIBUTION WIDTH 13.2 % (12.0-15.0); WHITE BLOOD COUNT 17.8 x10^3/uL (4.8-10.8)
[2023-07-01] MEDS ORDERED: ROPIVACAINE 0.2% 0 MG/0 ML BAG EP ONE (23:28)
[2023-07-02] MEDS ORDERED: HYDROCORTISONE 1% CREAM 28 GM TUBE PR PRN (00:42)
[2023-07-02] MEDS ORDERED: WITCH HAZEL/GLYCERIN 1 PAD TOP PRN (00:42)
--- NOTE | 2023-07-02 00:50 | HISTORY & PHYSICAL EXAMINATION ---
Admit History - Visit Reason Visit Reason: Contractions - : 2 Parity: 1 Premature: 0 Ectopic: 0 : 0 Care: positive: [facility] Risk/History: positive: None Complications This : positive: None Smoking Status: Never smoker - Mother's Labs Mother's Blood Type: positive: A Mother's RH: positive: Positive GBS: positive: Group B Step Negative Rubella Status: positive: Immune - HPI Diagnosis/Indication for NST: Other Vital Signs Temperature 36.9 C 07/01/23 22:34 Heart Rate 78 07/01/23 22:34 Respiratory Rate 20 07/01/23 22:34 Blood Pressure 122/68 07/01/23 22:34 Temperature 36.9 C 07/01/23 22:34 Heart Rate 78 07/01/23 22:34 Respiratory Rate 20 07/01/23 22:34 Blood Pressure 122/68 07/01/23 22:34 O2 Saturation If not protocol: Oxygen Flow, liters/minute - NST Procedure NST Procedure Start Time 22:46 Stop Time 23:09 Meds/Allgy - Home Medications Home Medications: Ambulatory Orders Medication Instructions Recorded Confirmed Acetaminophen [Acetaminophen Extra 1,000 mg PO Q8H PRN #60 tablet 11/06/21 Strength] Docusate Sodium 100Mg Capsule 100 - 200 mg PO BID PRN #60 cap 11/06/21 [Colace 100Mg Capsule] Ibuprofen [Motrin] 600 mg PO Q6H PRN #60 tab 11/06/21 - Allergies Allergies/Adverse Reactions: Allergies Allergy/AdvReac Type Severity Reaction Status Date / Time No Known Drug Allergies Allergy Verified 11/05/21 03:28 Review of Systems - Constitutional Constitutional: denies: Fatigue, Fever, Chills, Malaise - Eyes Eyes: denies: Blurred vision, Spots in vision, Dipolpia - Cardiovascular Cariovascular: denies: Irregular heart rate, Palpitations, Chest pain, Edema - Respiratory Respiratory: denies: Cough, Wheezing, SOB at rest - Gastrointestinal Gastrointestinal: denies: Constipation, Diarrhea, Nausea, Vomiting - Genitourinary Genitourinary: denies: Dysuria - Integumentary Integumentary: denies: Rash, Pruritis - Neurological Neurological: denies: Headache - Psychiatric Psychiatric: denies: Depression, Anxiety - Hematologic/Lymphatic Hematologic/Lymphatic: denies: Anemia Physical - Abdominal Exam Vital Signs: Temp Pulse Resp BP Pulse Ox O2 Flow Rate 36.9 C 78 20 122/68 07/01/23 22:34 07/01/23 22:34 07/01/23 22:34 07/01/23 22:34 Contraction Frequency (min/apart): 2-4 Contraction Intensity: positive: Strong Uterine Resting Tone: positive: Soft - Monitoring Heart Rate Baseline: 125 Strip Review: positive: Category I - Presentation Presentation: positive: Vertex - Vaginal Exam Membranes: positive: Membranes intact Dilation (in cm): 6 Effacement (%): 100 Station: positive: -1 - Speculum Exam Speculum Exam Performed: positive: No Plan for Labor - Plan For Labor I expect patient to be DC'd or transferred within 96 hours.: Yes Plan for Labor: HPI: Karen Norman is a 28yo who presents to [facility] with c/o contractions. Her cervix was noted to be 6/100/-1 and veretx with intact membranes. FHR baseline 120's, moderate variability, + accels, no decels. She denies vaginal bleeding or leakage of fluid. She reports +FM. She states contractions started this evening at 1700 and increased in frequency and intensity since that time. She reports at approximately 2000 things became significantly more intense. She has been a patient of [facility] for the duration of her which has remained uncomplicated. Of note she did decline her 28wk labs as well as her anatomic survey at 20wks gestation. She is supported by her mom. Her is home with their toddler. She will be admitted to [facility] for expectant management. 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 SAB x 0. Last pap 07/2022 WNL, no hx abnormal. Denies history of gonorrhea, chlamydia, genital herpes, oral herpes or any other STI. Sexual partner does NOT have HSV (oral or genital). Medical Hx: Anxiety Surgical Hx: none Social Hx: Monogamous with male partner Ronnell. Stopped drinking alcohol due to . Denies current use of tobacco, marijuana or other recreational drugs. Reports that she is safe in current relationship. Family Hx: Denies family history of congenital anomalies, Cystic Fibrosis or chromosomal abnormalities. Allergies: NKDA Medications: PNV course: A positive, antibody negative Rubella immune, varicella immune Hep B neg, Hep C neg HIV non-reactive, RPR non-reactive Initial U/S @ 8.3wks c/w LMP dating Genetic screening - declined FAS - declined Glucola - declined Tdap - declined COVID-19 vaccine - declined Influenza vaccine - declined GBS negative Physical exam: Normocephalic, atraumatic Heart RRR w/o M/G/R Lungs CTAB Abdomen gravid, soft, nontender EFW 3200g FHR baseline 120s, moderate variability, + accels, no decels Contractions palpate strong every 2-4 minutes with soft resting tone SVE 6/100/-1 and vertex with intact membranes Bilateral LE's no edema Mood is good Assessment: 28yo @ 38.4wks gestation by LMP c/w 8.3wk U/S Active labor FHR Category I GBS negative Plan: Admit to [facility] for expectant management Intermittent FHR auscultation. Nitrous oxide PRN. Jacuzzi PRN. Epidural per maternal request. Anticipate .
--- NOTE | 2023-07-02 01:12 | DELIVERY NOTE ---
Delivery Note - Labor Labor: positive: Spontaneous - Delivery Method Delivery Method: positive: Spontaneous vaginal delivery - Presentation Presentation: positive: Vertex, Compound, REBECCA - left occiput anterior - Nuchal Cord Nuchal Cord: positive: None - Amniotic Fluid Description Amniotic Fluid Description: positive: Clear - Episiotomy Type Episiotomy Type: positive: None - Laceration Laceration: positive: None - Delivery Outcome Delivery Outcome: positive: Livebirth - [place]: positive: Placed in direct skin contact with mother, Bulb syringe, Stimulated, Warmed, [place] used [place] sex: positive: Male - Cord Cord: positive: 3 vessels - Placenta Placenta: positive: Intact, Spontaneous - Estimated Blood Loss Estimated Blood Loss (in cc): 300 - Post Delivery Events Post Delivery Events: positive: No post delivery events - Delivery Comments (Free Text/Narrative) Delivery Comments (Free Text/Narrative): Labor: This 28yo @ 38.2wks gestation by LMP c/w 8.3wk U/S who presented to [facility] in active labor. Cervix was 6/100/-1 and vertex with intact membranes. FHR pattern demonstrated Category I pattern throughout labor. Normal labor cour se. SROM occurred at 2334 and was noted to be a moderate amount of clear fluid. Pt progressed to c/c/0 at 2340 with onset of active, spontaneous pushing at 2345. : Normal SVB of viable male on 07/02/2023 at 0003 in REBECCA position with left compound hand. No nuchal cord. The was placed on maternal abdomen, stimulated, dried, and placed skin to skin. 's were 8/10 at 1 and 5 minutes respectively. The umbilical cord was allowed to stop pulsating at which time it was doubly clamped by CNM and cut by support person. 3VC. Cord blood was obtained. Pt declined active management of the third stage of labor. The placenta delivered spontaneously and intact at 0011. EBL 300mL. Fourth stage: uterine fundus firm and there is no excessive bleeding. The perineum, vagina, and cervix were inspected and found to be intact. initiated. Family bonding well. Both mother and baby were left in stable condition.
[2023-07-02] MEDS: ACETAMINOPHEN 500 MG TABLET PO SCH ×2 (01:32→09:45)
[2023-07-02] MEDS: IBUPROFEN 800 MG TABLET PO SCH ×3 (01:32→17:44)
[2023-07-02] MEDS ORDERED: DOCUSATE SODIUM 100 MG CAPSULE PO SCH (09:00)
[2023-07-02 12:59] VITALS: O2SAT 100
--- NOTE | 2023-07-02 17:12 | Discharge Plan ---
Discharge Plan Problem Reviewed?: Yes Disposition: Home, Self Care Condition: Good Diet: Regular Activity Restrictions: No Restrictions Shower Restrictions: No Driving Restrictions: No Weight Bearing: Full Weight Instruction Topics: Vaginal After No Smoking: If you smoke, Please STOP! Call for help. Follow-up with: Ludmila Koch CNM, ARNP [Provider Admit Priv/Credential] - 1 Week
--- NOTE | 2023-07-02 17:18 | DISCHARGE SUMMARY ---
Discharge Summary Condition at Discharge: Good Discharge Disposition: 01 Home, Self Care - HOSPITAL COURSE Hospital Course: Date of Admission: 07/01/2023 Date of Discharge: 07/02/2023 Diagnosis on Admission: 1. 28yo @ 38.1wks gestation 2. Active labor 3. FHR Category I 4. GBS negative Diagnosis on Discharge: 1. 28yo day of delivery 2. 3. Normal recovery Brief History: She is a patient of [facility] who presented on 07/01/2023 with c/o contractions. Upon arrival cervix was 6/100/-1 and vertex with intact membranes. She was admitted to [facility] for expectant management. SROM occurred at 2334 and was noted to be a moderate amount of clear fluid. She progressed to spontaneously deliver a viable male infant on 07/02/2023 @ 0003. A pgars were 8/10 and 1 and 5 minutes respectively. EBL 300mL. Perineum, vagina, and cervix were inspected and found to be intact. She has been doing well in her course. She is ambulating and tolerating a regular diet. She is urinating without difficulty and her lochia is normal. Her pain is well controlled with oral medications. She is without difficulty and she is bonding well with her baby. Her is supportive at the bedside. She will be discharged home today on day #1 with instructions to continue taking her vitamin while and to continue taking ibuprofen and tylenol over the counter as needed for pain management. She intends to follow up with myself in 1 week for routine visit or sooner if needed. She has been given precautions to call if she has any worsening fevers, chills, abdominal pain, increased vaginal bleeding or foul smelling vaginal lochia. Physical exam: Normocephalic, atraumatic. Heart RRR w/o M/G/R, lungs CTAB, abdomen soft and nontender with fundus firm at U-1, perineum intact, light lochia rubra. Bilateral LE's no edema. Mood is good. - ALLERGIES Allergies/Adverse Reactions: Allergies Allergy/AdvReac Type Severity Reaction Status Date / Time No Known Drug Allergies Allergy Verified 11/05/21 03:28 - MEDICATIONS Home Medications: Ambulatory Orders Medication Instructions Recorded Confirmed Acetaminophen [Acetaminophen Extra 1,000 mg PO Q8H PRN #60 tablet 11/06/21 Strength] Docusate Sodium 100Mg Capsule 100 - 200 mg PO BID PRN #60 cap 11/06/21 [Colace 100Mg Capsule] Ibuprofen [Motrin] 600 mg PO Q6H PRN #60 tab 11/06/21 - LABS Result Diagrams: 07/01/23 23:05
--- NOTE | 2023-07-02 17:21 | PROVIDER PROGRESS NOTE ---
Subjective - Subjective Subjective: Karen is a 28yo @ 38.1wks gestation by LMp c/w 8.3wk U/S who presents today to [facility] with c/o contractions. She reports contractions started approximately 1700 this evening and have increased in both frequency and intensity since that time. She reports around 2000 is when they become significant to her and she knew she was in active labor at that time. She denies vaginal bleeding or leakage of fluid. She denies headache, visual disturbances, RUQ or epigastric pain. She reports +FM. She is supported by her mom. NST reactive. FHR baseline 120s, moderate variability, + accels, no decels Contractions palpate strong every 2-4 minutes with soft resting tone SVE 6/100/-1 and vertex with intact membranes. Assessment: 28yo @ 8.3wks gestation by LMP c/w 8.3wk U/S Active labor FHR Category I GBS negative Plan: Admit to [facility] for expectant management. Objective - Vital Signs/Intake & Output Vital Signs: Vital Signs x48h Temp Pulse Resp BP Pulse Ox 07/02/23 12:53 36.9 C 62 16 106/60 100 Intake & Output: Intake & Output 06/29/23 06/30/23 07/01/23 07/02/23 23:59 23:59 23:59 23:59 Intake Total 347.083 610.917 Output Total 475 Balance 347.083 135.917 - Lab Results Fish Bones: 07/01/23 23:05 Other Labs: Lab Results x24hrs 07/01/23 07/01/23 Range/Units 23:05 23:05 WBC 17.8 H (4.8-10.8) x10^3/uL RBC 4.06 L (4.20-5.40) 10^6/uL Hgb 11.5 L (12.0-16.0) g/dL Hct 35.0 L (37.0-47.0) % MCV 86.2 (81.0-99.0) fL MCH 28.3 (27.0-31.0) pg MCHC 32.9 (32.0-36.0) g/dL RDW 13.2 (12.0-15.0) % Plt Count 268 (130-450) 10^3/uL MPV 9.9 (7.9-10.8) fL Neut # (Auto) 15.0 H (1.5-6.6) 10^3/uL Lymph # (Auto) 1.8 (1.5-3.5) 10^3/uL [place] # (Auto) 0.9 (0.0-1.0) 10^3/uL Eos # (Auto) 0.0 (0.0-0.7) 10^3/uL Baso # (Auto) 0.1 (0.0-0.1) 10^3/uL Absolute Nucleated RBC 0.00 x10^3/uL Nucleated RBC % 0.0 /100WBC Blood Type A POSITIVE Antibody Screen NEGATIVE
[2023-07-02 21:22] VITALS: BP 125/62
--- NOTE | 2023-07-02 23:33 | Labor Flowsheet ---
Labor Flowsheet Datetime Report Generated by CPN: 07/02/2023 23:33 Datetime: 07/02/2023 21:03 VITAL SIGNS NBP Sys/Nikki/Mean (mmHg): 125 : 62 : 76 Pulse: 63 Datetime: 07/02/2023 08:40 SpO2 (%): 99 Datetime: 07/02/2023 01:39 Stage of : Datetime: 07/02/2023 01:18 Respirations: 16 Temperature (C): 36.9 Temperature Route: Tympanic Datetime: 07/02/2023 00:54 Amniotic Fluid Amount: Moderate Amniotic Fluid Odor: Normal Datetime: 07/02/2023 00:03 Patient Care Comments: CNM handed baby to mom between her legs and we assisted pt with turning over from kneeling to recline. Baby dried and STS Datetime: 07/02/2023 00:02 Comments: attempted to find FHR with US, then , del imminent Datetime: 07/02/2023 00:00 Frequency (min): 2 ASSESSMENT A Monitor Mode: External US Datetime: 07/01/2023 23:54 FHR Baseline Rate : 130 Datetime: 07/01/2023 23:42 PATIENT CARE Patient Position/Activity: Hands-Knees Datetime: 07/01/2023 23:41 Pain Assessment Comments: Pt wants to deliver without epidural since happening so quickly Communication Comments: notified Briana Conn, volleyball assembler RN pt complete LaborFlag: OB Triage Datetime: 07/01/2023 23:34 Membrane Status: Ruptured Membranes Ruptured Date/Time: 07/01/2023 23:34 Membranes Rupture Method: Spontaneous Amniotic Fluid Color: Clear Datetime: 07/01/2023 23:29 PROCEDURE TIME OUT Procedure Verify: Correct Patient Identity; Correct Side and Site are Marked; Accurate Procedure Co nsent Form; Agreement on Procedure to be Done; Correct Patient Position Datetime: 07/01/2023 23:28 Epidural Positioning: Sitting Datetime: 07/01/2023 23:26 Contraction Comments: per pt verb/DB with UC's Datetime: 07/01/2023 23:14 ANESTHESIA Anesthesia Plans: Epidural Anesthesia Comments: LJ Spear, phlebotomy coordinator, called Obed Betancourt, SUPPORT TEACHER requesting to come in to init iate epidural. On his way Datetime: 07/01/2023 23:10 COMMUNICATION Communication: Provider at Bedside Provider Notified (Name): Ludmila Zee, CNM Datetime: 07/01/2023 23:05 PAIN Pain Scale: 8 Pain Presence: Intermittent Pain Type: Contraction Pain Location: uterus Pain Goal: 5 Pain Relief Measures: Pain Medication Given (Annotations: nitrous started after safety precaution g iven of pt only one to hold mask to face and educ on how delivery of nitrous only when mask sealed an d pt inhales. Pt verb understanding) Pain Coping: pt able to follow directions on nitrous use MATERNAL ASSESSMENT Level of Consciousness: Alert Datetime: 07/01/2023 22:49 UTERINE ACTIVITY Monitor Mode: External Quality: Strong Duration (sec): 60-100 Pattern: Normal: <= 5 Contractions in 10 Minutes Resting Tone (Palpate): Relaxed Variability: Moderate 6-25 bpm Accelerations: 15X15 Decelerations: None Category: Category I Datetime: 07/01/2023 22:46 VAGINAL EXAM Dilatation (cm): 6.0 Effacement (%): 90 Station: -1 Exam by: Carolyn Bailey RN Vaginal Bleeding: Normal Show Cervix, Consistency: Soft Cervix, Position: Midposition Vaginal Exam Comments: IBOW mildly bulging noted TEACHING Instructional Method: Verbal; Patient Instructed; Family/Support Person Instructed; Verbalized Unde rstanding Plan of Care: Plan of Care Discussed; Labor Unit Routine: [place] to Room; Call Watt; Bed; Unit Personnel; Handwashing; Flu/Illness Precautions; Monitoring; IV Pumps; Safety/Fall Risk Prevention
== END 2023-07-02 21:50 | disposition home or self-care (01) | DRG 807 ==
LOC: WFO 22:23 → FBP 22:25 → WFO 23:03
PROVIDERS: ADMIT Nurse Practitioner Obstetrics & Gynecology; ATTEND Nurse Practitioner Obstetrics & Gynecology
PROC: 10E0XZZ Delivery of Products of Conception, External Approach (ICD-10-PCS; principal; 2023-07-02)
DX: O80 Encounter for full-term uncomplicated delivery (principal); Z37.0 Single live birth; Z3A.38 38 weeks gestation of pregnancy
CPT/HCPCS: 85025; 86850; 86900; 86901; 99215; A9270; J7120

== ENCOUNTER 2023-10-04 08:00 | Outpatient (CLI) | payer SELFPAY | END 2023-10-04 23:59 | disposition home or self-care (01) | LOC: LAB.N 08:00 | PROVIDERS: ATTEND Nurse Practitioner | DX: J02.9 Acute pharyngitis, unspecified (principal) | CPT/HCPCS: 87070 ==